=== PATIENT | female | born 1975 | race Caucasian/White ===

== ENCOUNTER 2018-02-03 23:55 | Emergency (ER) | payer SELFPAY ==
[~2018-02-03] VITALS: Ht 170.2 cm; Wt 117.9 kg
[2018-02-04] VITALS: BP_SYST 163
[2018-02-04] MEDS ORDERED: KETOROLAC TROMETHAMINE 60 MG/2 ML VIAL IM ONE (00:15)
[2018-02-04] MEDS ORDERED: ONDANSETRON 4 MG ODT TAB PO ONE (00:45)
[2018-02-04 00:46] VITALS: BP_SYST 153
== END 2018-02-04 00:46 | disposition home or self-care (01) ==
LOC: SED 23:55
DX: S16.1XXA Strain of muscle, fascia and tendon at neck level, initial encounter (principal); R03.0 Elevated blood-pressure reading, without diagnosis of hypertension; X58.XXXA Exposure to other specified factors, initial encounter; Y93.I1 Activity, roller coaster riding; Y92.89 Other specified places as the place of occurrence of the external cause; Y99.8 Other external cause status
CPT/HCPCS: 70250; 99284; J1885; Q0162